=== PATIENT | male | born 1945 | race Caucasian/White ===

== ENCOUNTER 2023-01-26 09:30 | Day surgery (SDC) | payer MEDICARE, BC ==
[~2023-01-26] VITALS: Ht 175.3 cm; Wt 84.1 kg
[2023-01-26] VITALS (12 sets, daily range): BP systolic 126–175; BP diastolic 62–87
[~2023-01-26 09:30] MED LIST: AMLO5 PO; DORZOLAMIDE-TIM10 ML BOTHEYES; FLUOROURACIL30 G2 TOP; LATA.005SO BOTHEYES; Lipitor20 MG PO
--- NOTE | 2023-01-26 11:23 | NUR ---
Patient up to Ambulate independently. Gait steady. Surgical site prepped with 2% Chlorhexidine cloth wipe. History, Chart, Medications and Allergies reviewed before start of procedure. Lungs clear T/O to Auscultation. Patient confirms NPO status and agrees with scheduled surgery. Pre-Op teaching done. Pt verbalizes understanding. GLASSES PLACED IN CASE IN PT BELONGING BAG PER PATIENT.
--- NOTE | 2023-01-26 13:45 | NUR ---
01/26/23 1345 Elizabeth Solano SPINAL NERVE BLOCK COMPLETED BY DR. YOUSSEF UPON ENTRY TO OR. PT TOLERATED WELL.
--- NOTE | 2023-01-26 18:06 | NUR ---
PT ARRIVED TO THE ROOM AT APPROXIMATELY 1550. PT ALERT/ORIENTED AT TIME OFF ARRIVAL TO THE ROOM. L KNEE DRESSING C/D/I. PT UNABLE TO WIGGLE OR FEEL BLE R/T SPINAL ANESTHESIA. SPINAL SITE WNL. PT MOVING UPPER EXTREMITIES. PT EDUCATED ABOUT HOW TO USE HIS CALL LIGHT AND ABOUT HOURLY ROUNDING. PT'S S/O AT THE BEDSIDE FOR SUPPORT. VSS.
--- NOTE | 2023-01-26 18:46 | NUR ---
SHIFT SUMMARY PT IS POD#0 FROM L TKA WITH DR. HERNANDEZ. SINCE PT ARRIVED BACK FROM PACU HIS SENSATION AND MOVEMENT TO BLE HAS RETURNED. PT WILL HAVE PHYSICAL THERPY TOMORROW. PT STILL NEEDS TO VOID POST-OP AND GET OOB. PT TOLERATING PO. NORMA MANAGED. REPORT GIVEN TO ADAM RN. PT RESTING IN BED AWAKE AND PARTICIPATED WITH BEDSIDE REPORT. CALL LIGHT WITHIN REACH.
[2023-01-27 04:26] VITALS: BP 145/75
--- NOTE | 2023-01-27 04:35 | NUR ---
SHIFT [facility] S/P L TKA. MANINDER WRAP CDI WITH POLAR PACK IN PLACE. PT HAS FULL SENSATION AND HAS BEEN OOB TO BRP WITH 1 SBA USING FWW + GB. VOIDING SPONTANEOUSLY. KENIA PO. IV SL. 1 ROXICODONE/TYLENOL/TORADOL FOR PAIN MANAGEMENT. VSS. USES CALL LIGHT APPROPRIATELY.
[2023-01-27 05:44] LABS: Bun/Creatinine Ratio 16.8 (12.0-20.0); Calcium, Blood 8.2 mg/dL (8.5-10.1); Creatinine, Blood 1.31 mg/dL (0.60-1.20)
[2023-01-27 06:12] LABS: BASOPHILS ABSOLUTE AUTO 0.07 K/mm3 (0.00-0.23); BASOPHILS PERCENT AUTO 1 % (0-2); EOSINOPHILS PERCENT AUTO 1 % (0-6); Hematocrit 37.1 % (37.0-53.0); Hemoglobin 12.3 g/dL (13.5-17.5); IMMATURE GRAN ABSOLUTE AUTO 0.07 K/mm3 (0.00-0.10); IMMATURE GRAN PERCENT AUTO 1 % (0-1); LYMPHOCYTES ABSOLUTE AUTO 1.46 K/mm3 (0.84-5.20); LYMPHOCYTES PERCENT AUTO 17 % (21-46); MONOCYTES ABSOLUTE AUTO 0.87 K/mm3 (0.16-1.47); MONOCYTES PERCENT AUTO 10 % (4-13); Mean Corpuscular HGB 30.9 pg (26.0-34.0); Mean Corpuscular HGB Conc 33.2 g/dL (31.5-36.5); Mean Corpuscular Volume 93 fL (80-100); NEUTROPHILS ABSOLUTE AUTO 6.13 K/mm3 (1.96-9.15); NEUTROPHILS PERCENT AUTO 71 % (41-73); RDW Coefficient Variation 12.8 % (11.7-14.2); Red Blood Cell Count 3.98 M/mm3 (4.30-5.90)
[2023-01-27 07:04] LABS: Mean Platelet Volume 10.2 fL (9.1-12.4); Platelet Count 200 K/mm3 (150-400)
[2023-01-27 07:06] VITALS: BP 150/74
[2023-01-27] MEDS ORDERED: Percocet 5-3251 EACH PO (08:30)
[2023-01-27] MEDS ORDERED: ASPI81CH PO (08:30)
--- NOTE | 2023-01-27 10:33 | NUR ---
DISCHARGE POD 1 LTKA PT AMBULATED WELL WITH THERAPY, FULL SENSATION. NO NUMBNESS OR TINGLING. PAIN WELL CONTROLLED PER EMAR. PT DENIES FURTHER NEEDS. VOIDING WELL. TOLERATING DIET. ALL INSTRUCTIONS GONE OVER WITH PATIENT. PRESCRIPTIONS IN DISCHARGE PACK. WAITING FOR RIDE AND WILL BE ESCORTED OUT WITH WHEELCHAIR.
== END 2023-01-27 10:55 | disposition home or self-care (01) ==
LOC: ORSCMMR 09:30 → ORD 11:00 → ORSCMMR 11:00 → SURS 15:29 → ORSCMMR 01-27 10:55
PROVIDERS: Orthopaedic Surgery
PROC: 0SRD0JA Replacement of Left Knee Joint with Synthetic Substitute, Uncemented, Open Approach (ICD-10-PCS; principal; 2023-01-26 13:00)
DX: M17.12 Unilateral primary osteoarthritis, left knee (principal); I10 Essential (primary) hypertension; E78.5 Hyperlipidemia, unspecified; Z79.899 Other long term (current) drug therapy; Z87.891 Personal history of nicotine dependence; E78.00 Pure hypercholesterolemia, unspecified
CPT/HCPCS: 36415; 73560-LT; 80048; 85025; 97110; 97116; 97162; 97530; A9270; C1776; J0171; J0690; J0735; J1885; J2250; J2704; J2795; J7120